=== PATIENT | female | born 1950 | race Caucasian/White ===

== ENCOUNTER 2023-01-03 20:38 | Emergency (ER) | payer OTHER ==
[~2023-01-03] VITALS: Ht 157.5 cm; Wt 68.0 kg
--- NOTE | 2023-01-03 20:54 | NUR ---
[id number] FROM [facility] C/O BACK PAIN X1 DAY. NO TRAUMA.
--- NOTE | 2023-01-03 21:20 | NUR ---
DR. MCGOWAN AT BEDSIDE
[2023-01-03] MEDS ORDERED: MORPHINE SULFATE INJ 4 MG/ML DISP.SYRIN ONE (21:25)
[2023-01-03] MEDS ORDERED: MORPHINE SULFATE INJ 2 MG/ML DISP.SYRIN IV ONE (21:30)
--- NOTE | 2023-01-03 21:40 | NUR ---
MEDICATIONS ADMINISTERED ORDERED
[2023-01-03] MEDS ORDERED: OXYC-133 PO (22:14)
--- NOTE | 2023-01-03 22:47 | NUR ---
[facility] CALLED FOR BLS GOING BACK TO [facility]F PER [facility] ETA 30 MIN
--- NOTE | 2023-01-03 22:54 | NUR ---
REPORT GIVEN TO GUY CULP
--- NOTE | 2023-01-03 23:45 | NUR ---
[facility] AT BEDSIDE TO RETURN PT TO SNF
[2023-01-04 00:26] VITALS: BP 114/52
== END 2023-01-04 00:27 | disposition home or self-care (01) ==
LOC: ER 20:57
DX: M54.50 Low back pain, unspecified (principal); G89.29 Other chronic pain; I10 Essential (primary) hypertension; I48.91 Unspecified atrial fibrillation; K21.9 Gastro-esophageal reflux disease without esophagitis; F32.A Depression, unspecified; Z79.899 Other long term (current) drug therapy; Z88.1 Allergy status to other antibiotic agents
CPT/HCPCS: 99283; J2270